=== PATIENT | male | born 1970 | race African-American/Black ===

== ENCOUNTER 2017-06-05 15:06 | Emergency (ER) | payer MEDICAID ==
[~2017-06-05] VITALS: Ht 188 cm; Wt 100.0 kg
[2017-06-05 15:39] VITALS: BP 149/89
[2017-06-05] MEDS ORDERED: OLAN2.5T3 PO (15:42)
[2017-06-05] MEDS ORDERED: MIRT15TA PO (15:42)
[2017-06-05] MEDS ORDERED: VENL-179 PO (15:42)
== END 2017-06-05 17:14 | disposition home or self-care (01) ==
LOC: ER 17:06
DX: J11.1 Influenza due to unidentified influenza virus with other respiratory manifestations (principal)
CPT/HCPCS: 99283